=== PATIENT | male | born 1985 | race Caucasian/White ===

== ENCOUNTER 2019-03-18 22:22 | Emergency (ER) | payer OTHER ==
[~2019-03-18] VITALS: Ht 175.3 cm; Wt 92.7 kg
[2019-03-18 22:26] VITALS: BP 120/78
[2019-03-18] MEDS ORDERED: AZITHROMYCIN 500 MG TABLET PO ONE (23:00)
[2019-03-18] MEDS ORDERED: CEFTRIAXONE 250 MG IM ONE (23:00)
[2019-03-18] MEDS ORDERED: AZITHROMYCIN 250 MG TABLET ONE (23:01)
[2019-03-18] MEDS ORDERED: CEFTRIAXONE 250 MG ONE (23:01)
--- NOTE | 2019-03-18 23:19 | NUR ---
PT MEDICATED PER JAN. PT PROVIDED D/C SUMMARY. ALL QUESTIONS ANSWERED. PT AMBULATES TO REGISTRATION DESK WITH STEADY GAIT FOR D/C HOME. PT DENIES ANY OTHER NEEDS PERTAINING TO THIS VISIT.
== END 2019-03-18 23:25 | disposition home or self-care (01) ==
LOC: ED 23:00
DX: Z20.2 Contact with and (suspected) exposure to infections with a predominantly sexual mode of transmission (principal)
CPT/HCPCS: 96372; 99283; J0696